=== PATIENT | female | born 1965 | race African-American/Black ===

== ENCOUNTER → 2017-03-22 | Outpatient (CLI) | payer OTHER ==
[~2017-03-22] MED LIST: AMLODIPINE BESY10 MG PO; ANTACID650 MG PO; CATAPRES0.1 M1 PO; GLUCOTROL XL5 M1 PO; LANTUS100 UNITS/ SUBQ; LASIX PO; PRINIVIL40 MG PO; ROBAXIN 750750 M1 PO; TRADJENTA5 MG PO; VITAMIN D1000 UNI1 PO
== END | disposition home or self-care (01) ==
LOC: CBAR 09:56
DX: Z01.812 Encounter for preprocedural laboratory examination (principal); E66.01 Morbid (severe) obesity due to excess calories
CPT/HCPCS: 36415; 84443; 86677; G0463

== ENCOUNTER → 2017-05-18 | Outpatient (CLI) | payer OTHER ==
--- NOTE | ~2017-05-18 | CR97 ---
[facility] A Service of [facility] & [facility] RADIOLOGY TEXT RESULTS PATIENT: CLEM ORTA LOCATION: [facility] : 69 UNIT #: [id number] AGE: [address]: Tj Rubin MD SEX: F ORDER DR: [id number] [facility] [address] [place], [place] [address] [id number] O MR#: [id number] Acc #: [id number] NAME: CLEM ORTA : 1965 SEX: F STUDY DATE/TIME: 05/18/2017 8:18 UNIT: [facility] ROOM: STUDY DESCRIPTION: CR Esophagram Attending Physician: Tj Rubin M.D. Referring Physician: Tj Rubin M.D. Ordering Physician: Tj Rubin M.D. Primary Care Physician: Kiana Valdivia MEDICAL IMAGING REPORT This report is preliminary unless electronic signature is present EXAM Esophagram 05/18/2017 HISTORY Planned lap band surgery. PROCEDURE Study performed with 0.5 minutes of fluoroscopy and 7 spot images. FINDINGS There is no stricture or mass or ulceration. There is no hiatal hernia. The esophagus is perhaps slightly dilated and capacious, but peristalsis is normal. IMPRESSION Minimally dilated but otherwise normal esophagus. No stricture or obstruction. Normal peristalsis. Dictated by... Miguel Angel Acevedo M.D. THIS IS AN ELECTRONICALLY VERIFIED REPORT Miguel Angel Acevedo M.D. at 05/18/2017 4:05 PM TEV/psc TD: 05/18/2017 10:49 JOB #: [id number] MEDICAL IMAGING REPORT Page 1 of 1 COPY
--- NOTE | ~2017-05-18 | CR63 ---
[facility] A Service of [facility] & [facility] RADIOLOGY TEXT RESULTS PATIENT: CLEM ORTA LOCATION: [facility] : 69 UNIT #: [id number] AGE: [address]: Tj Rubin MD SEX: F ORDER DR: [id number] [facility] [address] [place], [place] [address] [id number] O MR#: [id number] Acc #: [id number] NAME: CLEM ORTA : 1965 SEX: F STUDY DATE/TIME: 05/18/2017 7:35 UNIT: [facility] ROOM: STUDY DESCRIPTION: CR Chest 2 View Attending Physician: Tj Rubin M.D. Referring Physician: Tj Rubin M.D. Ordering Physician: Tj Rubin M.D. Primary Care Physician: Kiana Valdivia R.N. MEDICAL IMAGING REPORT This report is preliminary unless electronic signature is present EXAM Chest PA and lateral, 05/18/2017 HISTORY Morbid obesity, preop laparoscopic gastric banding. Shortness of breath on exertion today. Benign essential hypertension, diabetes type 2. FINDINGS PA and lateral examination of the chest upright shows a good expansion of the parenchyma with a normal distribution of the pulmonary vascularity. There is no indication of congestion, effusion, infiltrate, tumor, or nodular density. The pleural reflections and diaphragmatic contours are normal. The cardiac silhouette and mediastinal anatomy is within normal limits. IMPRESSION Normal chest. Dictated by... Jimi Michelle M.D. THIS IS AN ELECTRONICALLY VERIFIED REPORT Jimi Michelle M.D. at 05/18/2017 4:32 PM EILEEN/vane TD: 05/18/2017 08:45 JOB #: [id number] MEDICAL IMAGING REPORT Page 1 of 1 COPY
--- NOTE | ~2017-05-18 | EKG ---
PATIENT: CLEM ORTA UNIT #: [id number] Ventricular Rate: 102 BPM Atrial Rate: 102 BPM P-R Interval: 152 ms QRS Duration: 86 ms Q-T Interval: 338 ms QTC Calculation(Bezet): 440 ms Calculated R [place]: 30 degrees Calculated T [place]: 148 degrees Diagnosis Line: Sinus tachycardia Diagnosis Line: T wave abnormality, consider lateral ischemia Diagnosis Line: Abnormal ECG Diagnosis Line: No previous ECGs available Diagnosis Line: Confirmed by SAVANNAH HILL MD ([id number]) on 05/18/2017 Diagnosis Line: 5:51:29 PM INTERPRETING MD: SERGIO HERNANDEZ
[2017-05-18 09:09] LABS: HEMATOCRIT 34.7 % (35.0-45.0); HEMOGLOBIN 11.5 gm/dL (12.0-16.0); MEAN CORPUSCULAR HEMOGLOBIN 28.3 PG (28-34); MEAN CORPUSCULAR HGB CONC 33.3 g/dL (30-36); RED BLOOD COUNT 4.08 X10e (3.90-5.30); RED CELL DISTRIBUTION WIDTH 16.4 % (11.0-15.5); WHITE BLOOD COUNT 10.9 X10e3 (4.0-10.5)
[2017-05-18 09:43] LABS: BILIRUBIN,TOTAL 0.5 mg/dL (0.2-2.0); BUN/CREATININE RATIO 16.38; CALCIUM SERUM 9.6 mg/dL (8.4-10.2); CREATININE SERUM 3.6 mg/dL (0.6-1.4); GLOM FILT RATE Estimated 16.3 mL/min (>60); POTASSIUM 5.1 mmol/L (3.5-5.1); PROTEIN TOTAL SERUM 7.4 g/dL (6.0-8.3)
== END | disposition home or self-care (01) ==
LOC: CRAD 07:01 → CAMB 08:30
PROVIDERS: Surgery
DX: Z01.818 Encounter for other preprocedural examination (principal); E66.01 Morbid (severe) obesity due to excess calories; I10 Essential (primary) hypertension; E11.9 Type 2 diabetes mellitus without complications; R94.31 Abnormal electrocardiogram [ECG] [EKG]; R00.0 Tachycardia, unspecified
CPT/HCPCS: 36415; 71020; 74220; 80053; 80061; 84443; 85027; 93005